=== PATIENT | female | born 1975 | race Hispanic/Latino ===

== ENCOUNTER 2025-01-13 16:04 | Emergency (ER) | payer BC ==
[~2025-01-13] VITALS: Ht 157.5 cm; Wt 77.6 kg
--- NOTE | 2025-01-13 16:20 | ERN ---
ED Note History of Present Illness Stated Complaint: SHOULDER PAIN Chief Complaint: Shoulder Injury/Pain Time Seen by MD: 16:07 Time Seen by Midlevel: 16:08 Dictation: Ms. Dejesus is a 49-year-old female with history of nicotine dependence presented to the emergency afternoon for evaluation of right shoulder. She states that she sustained a fall onto her right thigh while at work two days ago and now has persistent pain to her right shoulder/ upper arm. He states the pain radiates to her neck and for right elbow. She denies additional injury. She denies LOC. She states she has taken no aaia-maf-chbrdin pain medications because she donates plasma and states he was told she should avoid. She denies fever, chills, shortness of breath, cough, chest, palpitations, abdominal, nausea, vomiting, diarrhea, dysuria, headache, or dizziness Allergies: Coded Allergies: No Known Drug Allergies (Unverified Allergy, Unknown, 01/13/25) Emergency Care PROTOHISTORIAN: None Past Medical History Past Medical History: No Pertinent History, Other (Nicotine dependence) Surgical History: Other (These) PSYCH History: no pertinent psych hx Social History: Smokers, Drugs (Denies), ETOH (Denies) History: Not Applicable RN Note Reviewed/Agreed w/PFSH: Yes Review of System Dictation REVIEW OF SYSTEMS: CONSTITUTIONAL: Patient denies fevers, chills, sweats and weight changes. EYES: Patient denies any visual symptoms. EARS, NOSE, AND THROAT: No difficulties with hearing. No symptoms of rhinitis or sore throat. CARDIOVASCULAR: Patient denies chest pains, palpitations, orthopnea and paroxysmal nocturnal dyspnea. RESPIRATORY: No dyspnea on exertion, no wheezing or cough. GI: No nausea, vomiting, diarrhea, constipation, abdominal pain, hematochezia or melena. : No urinary hesitancy or dribbling. No nocturia or urinary frequency. No abnormal urethral discharge. MUSCULOSKELETAL: Reports pain to right shoulder and right upper arm onset two days ago. She states pain radiates to right lateral neck as well as right elbow. NEUROLOGIC: No chronic headaches, no seizures. Patient denies numbness, tingling or weakness. PSYCHIATRIC: Patient denies problems with mood disturbance. No problems with anxiety. ENDOCRINE: No excessive urination or excessive thirst. DERMATOLOGIC: Patient denies any rashes or skin changes. Initial Vital Sign VS Vital Signs Date Time Temp Pulse Resp B/P (MAP) Pulse Ox O2 Delivery O2 Flow Rate FiO2 01/13/25 16:07 98.2 83 16 136/90 98 0 01/13/25 16:16 Room Air* 21 Physical Exam Dictation Vital signs: Reviewed. Constitutional: No acute distress. Non-toxic appearing. Head/Face: Normocephalic, atraumatic. Eyes: Periorbital areas with no swelling, redness, or edema. Lids and lashes are normal. Conjunctival injection is absent. Sclera anicteric. Pupils equal, round, reactive to light. ENT: Pinnas intact and no signs of trauma or erythema. Ear canals clear and no discharge. TMs no erythema. No nasal discharge or bleeding noted. Oropharynx with no exudate, redness, swelling, masses, exudates, or evidence of obstruction. Uvula midline. Mucous membranes moist. Neck: Trachea midline, no masses palpated, and no cervical lymphadenopathy. No swelling. Supple, full range of motion. Chest/Axilla: No tenderness, no crepitus, no paradoxical movement, no retractions. Cardiovascular: Regular rate, regular rhythm, no murmur, no gallops. Symmetric pulses. No peripheral edema. Respiratory: Respirations even and unlabored. Lung sounds clear; no wheezes, rales or rhonchi. Room air SpO2 99%. Gastrointestinal: Inspection is normal. No distention is appreciated. Bowel sounds are normal. No mass or organomegaly . There is no tenderness. No rebound. No rigidity. No voluntary or involuntary guarding. No Hawley's sign. Neurological: Normal speech, gross motor function intact, gross sensory function intact. No focal weakness/Paresthesia. Musculoskeletal/Extremities: Symmetric pulses. ROM intact to right wrist/fingers. Pain with ROM right shoulder and elbow. Slight edema to right elbow. She has good color, warmth, movement, and sensation to right fingers. Capillary refill less than 2 seconds. Radial/ulnar pulses palpable/strong Integumentary: Intact. Skin is normal color, warm and dry. Cap refill less than 2 seconds. Results (Laboratory/Radiology) Laboratory/Radiology Laboratory Tests Test 01/13/25 16:15 Urine HCG, Qualitative NEGATIVE (NEGATIVE) Labs Reviewed?: Yes X-RAY Comment: PATIENT: SEBAS DEJESUS MR#: [id number] : 1975 SEX: F AGE: 49 LOCATION: [facility] ORDER 12 STATUS: REG ER REPORT#: [id number] SERVICE 10 REASON: Fall injury ORDERING PHYSICIAN: JA HAGEN NP PROCEDURE: SHOL 2V RT - SHOULDER COMP 2+VWS RT Exam Type: HUMERUS 2+VWS RT, SHOULDER COMP 2+VWS RT Clinical Information: Fall injury Comparison: None PATIENT: SEBAS DEJESUS MR#: [id number] : 1975 SEX: F AGE: 49 LOCATION: [facility] ORDER 12 STATUS: REG ER [facility] REPORT#: [id number] SERVICE 10 REASON: Fall injury ORDERING PHYSICIAN: JA HAGEN NP PROCEDURE: HUM 2V RT - HUMERUS 2+VWS RT Exam Type: HUMERUS 2+VWS RT, SHOULDER COMP 2+VWS RT Clinical Information: Fall injury Comparison: None Findings: The bone examination is unremarkable. No fractures or dislocations are seen. No radiopaque foreign bodies are noted. Soft tissues are preserved. IMPRESSION: Normal examination. DICTATED BY: SATHYA MEDINA MD DATE: 01/13/251641 ELECTRONICALLY SIGNED BY: SATHYA MEDINA MD DATE: 01/13/251643 Findings: The bone examination is unremarkable. No fractures or dislocations are seen. No radiopaque foreign bodies are noted. Soft tissues are preserved. IMPRESSION: Normal examination. DICTATED BY: SATHYA MEDINA MD DATE: 01/13/251641 ELECTRONICALLY SIGNED BY: SATHYA MEDINA MD DATE: 01/13/251643 ED Course ED Course Orders Procedure Category Date Status Time ,Urine Test LAB 01/13/25 Complete 16:11 Sling VANITA 01/13/25 In Process 16:11 Apply Ice Pack To: CPOE 01/13/25 Transmitted (Er) 16:11 Shoulder Comp 2+Vws Rt RAD 01/13/25 Resulted 16:11 Humerus 2+Vws Rt RAD 01/13/25 Resulted 16:11 Vital Signs Date Time Temp Pulse Resp B/P (MAP) Pulse Ox O2 Delivery O2 Flow Rate FiO2 01/13/25 16:16 98.2 83 16 136/90 98 Room Air* 0 21 01/13/25 16:07 98.2 83 16 136/90 98 0 Uneventful ED course. Vital signs remained stable. She received dose Toradol as well as ice pack for discomfort. Sling was applied to the right upper extremity. She has good color, warmth, movement, and sensation to right f ingers. Capillary refill is brisk. X-rays of the right shoulder/humerus negative for fracture or dislocation. Findings were discussed with patient and all questions were answered Medical Decision Making MDM MDM: Differential diagnosis: Fracture shoulder, fracture humerus, fracture elbow, sprain/strain Rationale: Tests considered and ordered secondary to shared decision making include: X-ray Previous outside records reviewed: Old ER visits. Risk of complication and/or morbidity or mortality of patient management: None Medications-Per medication reconciliation Need for hospitalization: Patient does not meet criteria for hospitalization. Need for emergency major/minor surgery: No There are no social concerns with this patient. Prescription drug management Prescriptions will include symptomatic care Patient's prior external medical records from other ER visits were reviewed by me as indicated. Prior testing and results from previous visits were reviewed. Prior tests were taken into account with medical decision making and resource utilization, independent historian/historians were used to obtain complete medical history. I independently interpreted the test that were performed, results were reviewed by me and considered findings on radiology if ordered. Medical management and examination interpretation discussions were had by me with other qualified healthcare professionals as indicated for the patient's care. DX & DISP Disposition: Discharge Departure Impression: Primary Impression: Right shoulder strain Additional Impression: Contusion Condition: Stable Scripts Ibuprofen (Ibuprofen) 600 Mg Tablet 600 MG PO Q6H PRN for PAIN, #15 TAB 0 Refills Prov: JA HAGEN [employer] MECH[employer]IC 01/13/25 Additional Instructions: Rest. Avoid heavy lifting, overhead activities or anything that worsens pain. Light movement is okay to prevent stiffness do not immobilized and treatment. May wear sling. Apply ice pack for 15-20 minutes every 2-3 hours with the 1st 48-72 hour; use a cloth barrier between-skin). Following this. You may switch to warm compress use muscle tightness. May use Tylenol or ibuprofen as needed discomfort. Begin gentle shoulder stretches and range of motion exercises. See your primary care physician in 1-2 weeks if symptoms persist. You may benefit from physical therapy. Return to the emergency department for any worsening of symptoms or concerns. Referrals: SELF,REFERRAL (PCP) JA HAGEN NP January 13, 2025 16:20
--- NOTE | 2025-01-13 16:44 | HMCIMG ---
Exam Type: HUMERUS 2+VWS RT, SHOULDER COMP 2+VWS RT Clinical Information: Fall injury Comparison: None Findings: The bone examination is unremarkable. No fractures or dislocations are seen. No radiopaque foreign bodies are noted. Soft tissues are preserved. IMPRESSION: Normal examination.
[2025-01-13] MEDS ORDERED: IBUP-2070 PO (17:07)
[2025-01-13 17:10] VITALS: BP 128/82; PULSE 80; RESP 16; TEMP 98.2; O2SAT 98
== END 2025-01-13 17:35 | disposition home or self-care (01) ==
LOC: EDH 16:04
DX: S46.911A Strain of unspecified muscle, fascia and tendon at shoulder and upper arm level, right arm, initial encounter (principal); W18.39XA Other fall on same level, initial encounter; Y93.89 Activity, other specified; Y92.89 Other specified places as the place of occurrence of the external cause; Y99.8 Other external cause status
CPT/HCPCS: 73030; 73060; 81025; 99283